=== PATIENT | male | born 1985 | race Caucasian/White ===

== ENCOUNTER 2018-03-09 17:09 | Emergency (ER) | payer BC ==
[2018-03-09 17:10] VITALS: BMI 33.9
[2018-03-09 17:16] VITALS: TEMP 98.4; O2SAT 98
[2018-03-09 17:44] VITALS: BP 130/80; PULSE 86; RESP 20
--- NOTE | 2018-03-09 18:39 | C.PDOC ---
History Of Present Illness 33 year old male presents to the emergency department after a glass fell on his left foot, after which the patient sustained a laceration. Following the laceration, the bleeding was put under control by applying pressure. Patient's tetanus is up to date, and he denies numbness or any other complaints. Chief Complaint (Nursing): Wound Check History Per: Patient History/Exam Limitations: no limitations Onset/Duration Of Symptoms: Hrs Location Of Injury: Left: Foot (laceration) Quality Of Symptoms: Other (laceration) Past Medical History Reviewed: Historical Data, Nursing Documentation, Vital Signs Vital Signs: Last Vital Signs Temp 98.4 F 03/09/18 17:15 Pulse 86 03/09/18 17:43 Resp 20 03/09/18 17:43 BP 130/80 03/09/18 17:43 Pulse Ox 98 03/09/18 18:41 - Medical History PMH: No Chronic Diseases Denies: Diabetes, Hepatitis, HIV, HTN, Seizures, Sexually Transmitted Disease Surgical History: Tonsillectomy - [facility] Procedures DESTRUC-SHOULDER LES NEC (10/27/13) ROTATOR CUFF REPAIR (10/27/13) SHOULDER ARTHROPLAST NEC (10/27/13) TETANUS TOXOID ADMINIST (07/17/15) Family History: States: No Known Family Hx - Social History Hx Tobacco Use: No Hx Alcohol Use: No Hx Substance Use: No - Immunization History Hx Tetanus Toxoid Vaccination: No Hx Influenza Vaccination: No Hx Pneumococcal Vaccination: No Review Of Systems Except As Marked, All Systems Reviewed And Found Negative. Musculoskeletal: Positive for: Foot Pain Neurological: Negative for: Numbness Physical Exam - Physical Exam Appears: Non-toxic, No Acute Distress Cardiovascular: Rhythm Regular Respiratory: Normal Breath Sounds Gastrointestinal/Abdominal: Normal Exam, Soft, No Tenderness Extremity: Other (1/2 cm laceration to the dorsal aspect of the left foot. Bottom of the wound well visualized, no foreign body seen or palpated. ) ED Course And Treatment O2 Sat by Pulse Oximetry: 98 (RA) Pulse Ox Interpretation: Normal Medical Decision Making Medical Decision Making: Plan: Dermabond was applied to the wound. Disposition - Disposition Referrals: Cinda Benitez, [Non-Staff] - Disposition: HOME/ ROUTINE Disposition Time: 17:20 Condition: IMPROVED Additional Instructions: Thank you for letting us take care of you today. The emergency medical care you received today was directed at your acute symptoms. If you were prescribed any medication, please fill it and take as directed. It may take several days for your symptoms to resolve. Return to the Emergency Department if your symptoms worsen, do not improve, or if you have any other problems. Please contact your doctor or call one of the physicians/clinics you have been referred to that are listed on the Patient Visit Information form that is included in your discharge packet. Bring any paperwork you were given at discharge with you along with any medications you are taking to your follow up visit. Our treatment cannot replace ongoing medical care by a primary care provider (PCP) outside of the emergency department. Thank you for allowing the [facility] team to be part of your care today. Follow up with your primary care doctor if you have any concerns or signs of infection. Instructions: Laceration Repair With Glue (DC) Forms: [employer] (Hebrew) - Clinical Impression Clinical Impression: Foot laceration - Scribe Statement The provider has reviewed the documentation as recorded by the Scribe (Bolivar Lopez) Provider Attestation: All medical record entries made by the Scribe were at my direction and personally dictated by me. I have reviewed the chart and agree that the record accurately reflects my personal performance of the history, physical exam, medical decision making, and the department course for this patient. I have also personally directed, reviewed, and agree with the discharge instructions and disposition.
== END 2018-03-09 17:44 | disposition home or self-care (01) ==
LOC: C.ER 17:09
DX: S91.312A Laceration without foreign body, left foot, initial encounter (principal); W25.XXXA Contact with sharp glass, initial encounter; Y92.9 Unspecified place or not applicable